=== PATIENT | male | born 1965 | race Caucasian/White ===

== ENCOUNTER 2017-12-02 09:48 | Emergency (ER) | payer OTHER ==
[~2017-12-02] VITALS: Ht 180.3 cm; Wt 106.3 kg
[2017-12-02] MEDS ORDERED: ASPIR 8181 MG PO (09:55)
[2017-12-02] MEDS ORDERED: NABUMETONE 750750 M1 PO (09:56)
[2017-12-02] MEDS ORDERED: SULFASALAZINE500 M1 PO (09:56)
[2017-12-02] MEDS ORDERED: HYDROXYCHLOROQ200 M1 PO (09:56)
[2017-12-02] MEDS ORDERED: STERIOD INJECTION (09:57)
[2017-12-02] MEDS ORDERED: KEFLEX500 M1 PO (10:47)
[2017-12-02 10:52] VITALS: BP 148/78
== END 2017-12-02 10:52 | disposition home or self-care (01) ==
LOC: M.ERS 09:48
DX: L03.116 Cellulitis of left lower limb (principal); I10 Essential (primary) hypertension; M19.90 Unspecified osteoarthritis, unspecified site; Z88.5 Allergy status to narcotic agent